=== PATIENT | male | born 1970 | race African-American/Black ===

== ENCOUNTER 2020-04-11 09:40 | Emergency (ER) | payer BC ==
--- NOTE | 2020-04-11 10:21 | EDM.PDOC ---
ED HPI GENERAL MEDICAL PROBLEM - General Chief Complaint: Upper Extremity Injury/Pain Stated Complaint: LEFT ARM PAIN Time Seen by Provider: 04/11/20 10:20 - History of Present Illness INITIAL COMMENTS - FREE TEXT/NARRATIVE: 49-year-old male presents the emergency room with left arm pain. This pain is been going on for about 24 hours. He says it started before lunch yesterday. It was sudden onset. Patient cannot recall any provoking events. Patient does not have a history of heart problems shoulder problems. He is not on any routine medications. He does not smoke or use illicit drugs. Family history is unremarkable for heart problems. The patient has difficulty trying to describe the pain he has in his arm. It is not sharp its not dull its not achy it goes from his shoulder down into his hand. It is not described as electrical. Left Arm Pain Score (Numeric/FACES): 8 - Related Data Allergies Allergy/AdvReac Type Severity Reaction Status Date / Time Seasonal Allergies Allergy Sneezing Uncoded 04/11/20 09:53 Home Meds: Home Meds Cyclobenzaprine [Flexeril] 10 mg PO ASDIRECTED #15 tab 04/11/20 [Rx] Past Medical History - Past Health History Medical/Surgical History: Denies Medical/Surgical History Social & Family History - Tobacco Use Smoking Status *Q: Never Smoker - Caffeine Use Caffeine Use: Reports: Coffee, Energy Drinks, Soda Review of Systems - Review of Systems Review Of Systems: See Below Constitutional: Reports: No Symptoms Respiratory: Reports: No Symptoms Cardiovascular: Reports: Other (Left arm pain) GI/Abdominal: Reports: No Symptoms Genitourinary: Reports: No Symptoms Neurological: Reports: No Symptoms ED EXAM, GENERAL - Physical Exam Exam: See Below Exam Limited By: No Limitations General Appearance: Alert, Moderate Distress (From the left arm pain) Head: Atraumatic, Normocephalic Neck: Normal Inspection, Supple, Non-Tender, Full Range of Motion. No: Lymphadenopathy (L), Lymphadenopathy (R) Respiratory/Chest: No Respiratory Distress, Lungs Clear, Normal Breath Sounds Cardiovascular: Regular Rate, Rhythm, No Edema, No Murmur GI/Abdominal: Normal Bowel Sounds, Soft, Non-Tender Extremities: Normal Inspection, No Pedal Edema, Other (Range of motion of the shoulder elbow wrist and fingers no weakness appreciated) Neurological: Alert, Oriented, Normal Cognition, Other (Vague numbness sensation over his left hand. This does not follow any specific dermatom pattern. No appreciable weakness.) Course - Vital Signs Last Recorded V/S: Last Vital Signs Temp 36.4 C 04/11/20 09:51 Pulse 63 04/11/20 09:51 Resp 18 04/11/20 09:51 BP 123/61 04/11/20 09:51 Pulse Ox 98 04/11/20 09:51 - Orders/Labs/Meds Orders: Active Orders 24 hr Category Date Time Status Cardiac Monitoring [RC] . DIRECTED Care 04/11/20 10:30 Active EKG Documentation Completion [RC] STAT Care 04/11/20 10:29 Active CORONAVIRUS COVID-19 PCR [facility] Stat Lab 04/11/20 13:20 Ordered Labs: Laboratory Tests 04/11/20 04/11/20 04/11/20 Range/Units 10:46 10:46 10:46 WBC 3.86 L (4.23-9.07) K/mm3 RBC 4.05 L (4.63-6.08) M/mm3 Hgb 13.1 L (13.7-17.5) gm/dl Hct 38.2 L (40.1-51.0) % MCV 94.3 H (79.0-92.2) fl MCH 32.3 H (25.7-32.2) pg MCHC 34.3 (32.2-35.5) g/dl RDW Std Deviation 40.8 (35.1-43.9) fL Plt Count 221 (163-337) K/mm3 MPV 9.6 (9.4-12.3) fl Neut % (Auto) 30.8 L (34.0-67.9) % Lymph % (Auto) 50.8 (21.8-53.1) % [place] % (Auto) 8.8 (5.3-12.2) % Eos % (Auto) 9.1 H (0.8-7.0) Baso % (Auto) 0.5 (0.1-1.2) % Neut # (Auto) 1.19 L (1.78-5.38) K/mm3 Lymph # (Auto) 1.96 (1.32-3.57) K/mm3 [place] # (Auto) 0.34 (0.30-0.82) K/mm3 Eos # (Auto) 0.35 (0.04-0.54) K/mm3 Baso # (Auto) 0.02 (0.01-0.08) K/mm3 PT 10.3 (9.7-12.0) SECONDS INR 0.96 APTT 25 (22-31) SECONDS Sodium 137 (136-145) mEq/L Potassium 4.3 (3.5-5.1) mEq/L Chloride 104 (98-107) mEq/L Carbon Dioxide 25 (21-32) mEq/L Anion Gap 12.3 (5-15) BUN 12 (7-18) mg/dL Creatinine 1.0 (0.7-1.3) mg/dL Est Cr Clr Drug Dosing 88.35 mL/min Estimated GFR (MDRD) > 60 (>60) mL/min BUN/Creatinine Ratio 12.0 L (14-18) Glucose 104 (74-106) mg/dL Calcium 9.0 (8.5-10.1) mg/dL Total Bilirubin 0.6 (0.2-1.0) mg/dL AST 27 (15-37) U/L ALT 36 (16-63) U/L Alkaline Phosphatase 79 (46-116) U/L Troponin I < 0.017 (0.00-0.056) ng/mL Total Protein 7.9 (6.4-8.2) g/dl Albumin 4.0 (3.4-5.0) g/dl Globulin 3.9 gm/dL Albumin/Globulin Ratio 1.0 (1-2) Meds: Medications Discontinued Medications Generic Name Dose Route Start Last Admin Trade Name Freq PRN Reason Stop Dose Admin Aspirin 324 mg 04/11/20 10:31 04/11/20 10:43 Aspirin PO 04/11/20 10:32 324 mg ONETIME ONE Administration - Re-Assessments/Exams Free Text/Narrative Re-Assessment/Exam: 04/11/20 13:26 Work-up is been uneventful EKG is nondiagnostic troponin is negative. Chemistries are negative CBC shows mild anemia with a mildly decreased white count with a lymphocytosis. COVID screen is pending. Chest x-ray is unremarkable cervical spine x-ray shows some degenerative changes but fairly mild got some disc space narrowing at C5-6 with some osteophyte albeit minimal at C6-7 mostly anterior. I discussed the findings with the patient. At this point we will try him on Flexeril with today and tomorrow then nightly after this. He is invited to follow-up with the hospital clinic if he cannot get into the [facility] but if his symptoms persist I would recommend cervical MRI Departure - Departure Time of Disposition: 13:29 Disposition: Home, Self-Care 01 Clinical Impression: Cervical radiculopathy - Discharge Information Referrals: PCP,None [Primary Care Provider] - Forms: ED Department Discharge Additional Instructions: Return to the emergency room with any questions problems or worsening symptoms. You have been started on Flexeril, cyclobenzaprine, this is a muscle relaxant take 1 every 8 hours today and tomorrow then nightly thereafter. Allow 12 hours after using this medication before driving or returning to work. Follow-up with your regular healthcare provider the middle of this next week for recheck. If your symptoms are not improving I would recommend cervical MRI. If you do not have a regular healthcare provider you can follow-up with the hospital clinic here. [phone] Continue the ibuprofen. Sepsis Event Note (ED) - Evaluation Sepsis Screening Result: No Definite Risk - Focused Exam Vital Signs: Vital Signs Temp Pulse Resp BP Pulse Ox 04/11/20 09:51 36.4 C 63 18 123/61 98 - My Orders Last 24 Hours: My Active Orders 04/11/20 10:29 EKG Documentation Completion [RC] STAT 04/11/20 10:30 Cardiac Monitoring [RC] . DIRECTED 04/11/20 13:20 CORONAVIRUS COVID-19 PCR PHL Stat - Assessment/Plan Last 24 Hours: My Active Orders 04/11/20 10:29 EKG Documentation Completion [RC] STAT 04/11/20 10:30 Cardiac Monitoring [RC] . DIRECTED 04/11/20 13:20 CORONAVIRUS COVID-19 PCR PHL Stat
[2020-04-11] MEDS ORDERED: Aspirin 81 MG Tab.Chew PO ONE (10:31)
--- NOTE | 2020-04-11 11:45 | CR ---
Chest: Portable view of the chest was obtained. Comparison: No prior chest imaging. Heart size and mediastinum are normal. Lungs are clear with no acute parenchymal change. Bony structures are grossly intact. Impression: 1. Nothing acute is seen on portable chest x-ray. Diagnostic code #1 This report was dictated in MDT
--- NOTE | 2020-04-11 12:42 | CR ---
Cervical spine: AP, lateral and odontoid views of the cervical spine were obtained. Comparison: No prior cervical spine imaging. Mild disc space narrowing is noted at C5-6 with slight posterior ridging and mild anterior osteophytes. Minimal anterior osteophytes are noted at C6-7. Other disc spaces are maintained. Prevertebral soft tissues are normal. No subluxation or fracture is seen. Impression: 1. Minimal degenerative change. Diagnostic code #2 This report was dictated in MDT
== END 2020-04-11 13:50 | disposition home or self-care (01) ==
LOC: JD.ED 09:40
DX: M54.12 Radiculopathy, cervical region (principal); R20.0 Anesthesia of skin; Z88.8 Allergy status to other drugs, medicaments and biological substances; Z20.828 Contact with and (suspected) exposure to other viral communicable diseases
CPT/HCPCS: 36415; 71045; 72040; 80053; 84484; 85025; 85610; 85730; 87635; 93005; 99284; A9270; 99283; U0002

== ENCOUNTER 2022-06-20 00:51 | Emergency (ER) | payer BC ==
[2022-06-20] MEDS ORDERED: Sodium Chloride 0.9% 1,000 ML IV ONE (02:41)
[2022-06-20] MEDS ORDERED: Ondansetron 4 MG/2 ML SDV IVPUSH ONE (02:41)
[2022-06-20] MEDS ORDERED: HYDROmorphone 0.5 MG/0.5 ML Syringe IVPUSH ONE (02:41)
[2022-06-20] MEDS ORDERED: Haloperidol Lactate 5 MG/ML SDV IM ONE (02:41)
[2022-06-20] MEDS ORDERED: HYDROmorphone 1 MG/ML Syringe IVPUSH ONE (05:17)
[2022-06-20 06:47] LABS: CORONAVIRUS COVID-19 NAA POSITIVE (NEGATIVE)
== END 2022-06-20 07:50 | disposition home or self-care (01) ==
LOC: JD.ED 00:51
DX: U07.1 COVID-19 (principal); Z91.048 Other nonmedicinal substance allergy status
CPT/HCPCS: 0240U; 36415; 70450; 80053; 83735; 85007; 85027; 85379; 85610; 85730; 86140; 87040; 96372; 96374; 96375; 96376; 99284; J1170; J1630; J2405; J7030; 99282